=== PATIENT | male | born 1990 | race Caucasian/White ===

== ENCOUNTER → 2021-09-15 | Outpatient (CLI) | payer OTHER ==
--- NOTE | 2021-09-15 09:59 | KCIC ---
STUDY: MRI of the left wrist without contrast INDICATION: Close nondisplaced fracture of the scaphoid. S62.025A. COMPARISON: None available. TECHNIQUE: Multiplanar MR imaging of the left wrist performed without the use of intravenous or intra -articular contrast. FINDINGS: Bones/cartilage: Scaphoid waist fracture with the more distal aspect of the scaphoid mildly flexed as well as subluxed in the dorsal direction by 3 to 4 mm as measured on image 18 series 5. Thin hypoint ense signal along the fracture margins indicates delayed union. Marrow edema surrounding the fracture with some corresponding dusky T1 signal loss but not to the extent to be considered avascular necros is. Dorsal tilting of the lunate. There appears to be chondral thinning without subchondral marrow ed grecia at the more anterior margin of the radial styloid, image 41 series 10. Ligaments: The dorsal and volar bands of the scapholunate ligament complex are intact. There appears to be a thin perforation of the membranous component. Intact lunotriquetral ligament. The major extri nsic wrist ligaments are intact. Musculotendinous: Intact and normally located. Minimal flexor carpi radialis tenosynovitis adjacent t o the distal pole scaphoid, image 15 series 4. TFCC: Tear of the articular disc measuring 2.5 mm transverse on image 39 series 10. The volar and isidoro porfirio bands are intact as are the styloid and foveal attachments. Miscellaneous: Small distal radioulnar joint effusion. Mild wrist synovitis best appreciated along th e dorsum of the capitate. IMPRESSION: 1. Scaphoid waist fracture with findings of delayed union to include partial sclerosis along the fra cture margins. Correlate with the timing of injury to confirm. The distal fragment is mildly flexed a nd with 3 to 4 mm dorsal subluxation in relation to the proximal pole. Marrow edema surrounds the fra cture without definitive manifestations of avascular necrosis. Possible chondral thinning at the vola r aspect of the radial styloid. 2. The volar and dorsal bands of the scapholunate ligament are intact. Suspected thin perforation of the membranous portion. 3. Tear of the TFCC articular disc measuring 2.5 mm transverse. 4. Mild wrist synovitis and a small distal radioulnar joint effusion. Trace flexor carpi radialis te nosynovitis at the level of the distal scaphoid. Electronically signed by: NABIL HALL MD (09/15/2021 9:56 AM) [id number]
== END ==
LOC: KCIC MRI 07:52
PROVIDERS: ATTEND Physician Assistant
DX: S63.592A Other specified sprain of left wrist, initial encounter (principal); S62.025A Nondisplaced fracture of middle third of navicular [scaphoid] bone of left wrist, initial encounter for closed fracture; M65.842 Other synovitis and tenosynovitis, left hand; M25.432 Effusion, left wrist; X58.XXXA Exposure to other specified factors, initial encounter; Y93.89 Activity, other specified; Y92.89 Other specified places as the place of occurrence of the external cause; Y99.8 Other external cause status
CPT/HCPCS: 73221